=== PATIENT | female | born 1940 | race Caucasian/White ===

== ENCOUNTER → 2023-12-26 | Outpatient (REF) | payer MEDICARE | LOC: M LAB REF 17:02 | PROVIDERS: ATTEND Ophthalmology | DX: L85.8 Other specified epidermal thickening (principal) ==

== ENCOUNTER 2024-02-16 12:23 | Day surgery (SDC) | payer MEDICARE ==
[~2024-02-16] VITALS: Ht 157.5 cm; Wt 44.9 kg
[~2024-02-16 12:23] MED LIST: ATROPINE SULFATE 1% OPHTH SOLN 2ML BTL OD SCH; LR 1,000 ML IV SCH; METO1TAB7 PO; PROA1AER2 IN; UNRESOLVED CLARIFICATION ENTRY XX SCH
[2024-02-16] MEDS: TETRACAINE 0.5% OPHTH SOLN 4ML OD SCH (13:27)
[2024-02-16] MEDS: PHENYLEPHRINE 2.5% OPHTH SOL 2ML OD SCH (13:27)
[2024-02-16] MEDS: FLURBIPROFEN 0.03% OPHTH SOLN 2.5 ML OD SCH (13:27)
[2024-02-16] MEDS ORDERED: ATROPINE SULFATE 1% OPHTH SOLN 2ML BTL OD SCH (13:30)
[2024-02-16] MEDS ORDERED: MIDAZOLAM INJ 2MG/2ML VIAL As Ordered ONE (14:05)
[2024-02-16] MEDS ORDERED: fentaNYL 100 MCG/2 ML INJECTION As Ordered ONE (14:05)
[2024-02-16] MEDS: LIDOCAINE 1% SDV 5ML VIAL As Ordered ONE (14:29)
[2024-02-16] MEDS: CEFUROXIME 1MG/0.1ML INTRACAMERAL INJ As Ordered ONE (14:29)
[2024-02-16 14:47] VITALS: BP 160/83; TEMP 98.4; O2SAT 99
== END 2024-02-16 15:08 | disposition home or self-care (01) ==
LOC: M SDC 12:23
PROVIDERS: ATTEND Ophthalmology
DX: H25.11 Age-related nuclear cataract, right eye (principal); I10 Essential (primary) hypertension; J45.909 Unspecified asthma, uncomplicated; Z79.899 Other long term (current) drug therapy; Z88.1 Allergy status to other antibiotic agents; Z88.8 Allergy status to other drugs, medicaments and biological substances
CPT/HCPCS: 66984; J0697; J2250; J3010; V2632

== ENCOUNTER 2024-04-19 12:18 | Day surgery (SDC) | payer MEDICARE ==
[~2024-04-19] VITALS: Ht 160 cm; Wt 45.4 kg
[~2024-04-19 12:18] MED LIST changes: -ATROPINE SULFATE 1% OPHTH SOLN 2ML BTL OD SCH; +ATROPINE SULFATE 1% OPHTH SOLN 2ML BTL OS SCH; +FLURBIPROFEN 0.03% OPHTH SOLN 2.5 ML OS SCH; +MIDAZOLAM INJ 2MG/2ML VIAL As Ordered ONE; +MOXIFLOXACIN 0.6MG/0.4ML INTRAOCULAR SYRINGE As Ordered ONE; +PHENYLEPHRINE 2.5% OPHTH SOL 2ML OS SCH; +TETRACAINE 0.5% OPHTH SOLN 4ML OS SCH; -UNRESOLVED CLARIFICATION ENTRY XX SCH
[2024-04-19] MEDS: PHENYLEPHRINE 2.5% OPHTH SOL 2ML OS SCH (14:27)
[2024-04-19] MEDS: FLURBIPROFEN 0.03% OPHTH SOLN 2.5 ML OS SCH (14:27)
[2024-04-19] MEDS: TETRACAINE 0.5% OPHTH SOLN 4ML OS SCH (14:27)
[2024-04-19] MEDS ORDERED: fentaNYL 100 MCG/2 ML INJECTION As Ordered ONE (15:52)
[2024-04-19] MEDS: LIDOCAINE 1% SDV 5ML VIAL As Ordered ONE (16:23)
[2024-04-19] MEDS: CEFUROXIME 1MG/0.1ML INTRACAMERAL INJ As Ordered ONE (16:24)
[2024-04-19 16:35] VITALS: BP 139/78; TEMP 97.1; O2SAT 96
== END 2024-04-19 16:59 | disposition home or self-care (01) ==
LOC: M SDC 12:18
PROVIDERS: ATTEND Ophthalmology
DX: H25.12 Age-related nuclear cataract, left eye (principal); I10 Essential (primary) hypertension; Z79.899 Other long term (current) drug therapy; Z79.51 Long term (current) use of inhaled steroids
CPT/HCPCS: 66984; J0697; J2250; J3010; V2632